=== PATIENT | male | born 1955 | race Caucasian/White ===

== ENCOUNTER 2020-09-22 08:13 | Inpatient (IN) | payer BC ==
[2020-09-22] MEDS ORDERED: PHENYLEPHRINE-NS 100 MCG/ML 10 ML SYRINGE ONE (09:50)
[2020-09-22] MEDS ORDERED: Rocuronium Bromide 10 MG/ML (10ML VIAL) ONE (09:50)
[2020-09-22] MEDS ORDERED: Ondansetron PF 4 MG/2 ML Vial ONE (09:50)
[2020-09-22] MEDS ORDERED: PROPOFOL 200 MG/20 ML VIAL ONE (09:50)
[2020-09-22] MEDS ORDERED: ePHEDrine 50 MG/ML VIAL ONE (09:50)
[2020-09-22] MEDS ORDERED: EPINEPHrine 1 MG/10 ML Abboject SYRINGE ONE (09:50)
[2020-09-22] MEDS ORDERED: Glycopyrrolate 0.2 MG/ML 5 ML SYRINGE ONE (09:50)
[2020-09-22] MEDS ORDERED: Lidocaine 1% PF 5 ML VIAL ONE (09:50)
[2020-09-22] MEDS ORDERED: Dexamethasone 20 MG/5 ML VIAL ONE (09:50)
[2020-09-22] MEDS ORDERED: Heparin 10,000 UNITS/ 10 ML VIAL ONE ×2 (10:33→11:39)
[2020-09-22] MEDS ORDERED: Lidocaine 1% (PF) 30 ML VIAL ONE (10:33)
[2020-09-22] MEDS ORDERED: Fentanyl 100 MCG/2 ML VIAL ONE (10:43)
[2020-09-22] MEDS ORDERED: Iopamidol 370 76% 50 ML VIAL FS ONE (10:52)
[2020-09-22] MEDS ORDERED: Clindamycin/D5W 900 mg/50 ml Premix Bag ONE (11:04)
[2020-09-22] MEDS ORDERED: Phenylephrine 10 MG/ML VIAL ONE (11:40)
[2020-09-22] MEDS ORDERED: Heparin 25,000 units/D5W 500 ML ONE (12:33)
[2020-09-22] MEDS ORDERED: Protamine Sulfate 50 MG/5 ML VIAL ONE (12:47)
[2020-09-22] MEDS ORDERED: Midazolam HCl 2 mg/2 ml Vial ONE (13:23)
[2020-09-22] MEDS ORDERED: Benzonatate 100 MG CAP PO PRN (14:04)
[2020-09-22] MEDS ORDERED: Ondansetron PF 4 MG/2 ML Vial IVP PRN (14:04)
[2020-09-22] MEDS ORDERED: Cepastat Lozenges 1 LOZ PO PRN (14:04)
[2020-09-22] MEDS ORDERED: Temazepam 15 MG CAP PO PRN (14:04)
[2020-09-22] MEDS ORDERED: Acetaminophen 500 MG TAB PO PRN (14:04)
[2020-09-22] MEDS ORDERED: Sodium Chloride 0.9% 1,000 ML IV SCH (14:15)
--- NOTE | 2020-09-22 14:30 | RAD ---
Exam: Chest one view HISTORY:Status post cardiac device placed Comparison: 03/01/2012 FINDINGS: Cardiac silhouette:Normal size. Dual lead left-sided transvenous defibrillator is noted Aorta: Unremarkable Pulmonary vessels: Normal Costophrenic angles: Clear LUNGS: No masses or consolidation. Changes. Pneumothorax: None Osseous abnormalities: None IMPRESSION: 1. Left-sided transvenous defibrillator as above. No pneumothorax.
[2020-09-22 14:31] VITALS: BMI 26.4
[2020-09-22] MEDS: Sodium Chloride 0.9% 1,000 ML IV SCH ×2 (14:34→21:32)
[2020-09-22] MEDS: HYDROcodone/Acetaminophen 5/325 mg Tablet PO PRN (14:51)
[2020-09-22 16:32] LABS: Hemoglobin 8.9 g/dL (14.0-18.0); Platelet Count 93 thou/uL (130-400)
--- NOTE | 2020-09-22 18:10 | PDOC.EP ---
- Subjective Date: 09/22/20 Time: 18:09 Interval History: Chest discomfort. Improved after pericardial drain removal - Objective Allergies/Adverse Reactions: Allergies Allergy/AdvReac Type Severity Reaction Status Date / Time Penicillins Allergy Verified 09/21/20 11:23 Sulfa (Sulfonamide Allergy Verified 09/21/20 11:23 Antibiotics) Current Medications Acetaminophen (Acetaminophen 500 Mg Tab) 1,000 mg PO Q4H PRN PRN Reason: Fever > 101 Hydrocodone Bitart/Acetaminophen (Hydrocodone/Acetaminophen 5/325 Mg Tablet) 1 tab PO Q4H PRN PRN Reason: Moderate Pain (4-6) Last Admin: 09/22/20 14:51 Dose: 1 tab Documented by: Benzonatate (Benzonatate 100 Mg Cap) 100 mg PO Q6H PRN PRN Reason: Cough Sodium Chloride (Normal Saline 0.9%) 1,000 mls @ 125 mls/hr IV .Q8H CORA Last Admin: 09/22/20 14:34 Dose: 1,000 mls Documented by: Ondansetron HCl (Ondansetron Pf 4 Mg/2 Ml Vial) 4 mg IVP Q6H PRN PRN Reason: Nausea/Vomiting Last Admin: 09/22/20 14:50 Dose: 4 mg Documented by: Temazepam (Temazepam 15 Mg Cap) 15 mg PO HSPRN PRN PRN Reason: Insomnia Throat Lozenges (Cepastat Lozenges 1 Mik) 1 mik PO Q2H PRN PRN Reason: Sore Throat Vital Signs & Weight: Vital Signs Temp Pulse Ox 09/22/20 17:00 97.5 F L 09/22/20 14:37 100 09/22/20 14:28 93 L 09/22/20 14:03 97.8 F Weight 194 lb 14.218 oz I/O: I/O 09/21/20 09/22/20 09/23/20 06:59 06:59 06:59 Intake Total 1000 Balance 1000 - Labs Result Diagrams: 09/22/20 16:15 - Assessment/Plan Assessment/Plan: Pericardial effusion - No effusion on follow up echo about 1600. CXR okay. Hgb 8.9 Drain removed. Observe overnight. Case discussed with patient and .
--- NOTE | 2020-09-22 19:55 | PDOC.EP ---
- Subjective Date: 09/22/20 Time: 19:54 Interval History: Mild chest soreness. Feels much better - Objective Allergies/Adverse Reactions: Allergies Allergy/AdvReac Type Severity Reaction Status Date / Time Penicillins Allergy Verified 09/21/20 11:23 Sulfa (Sulfonamide Allergy Verified 09/21/20 11:23 Antibiotics) Current Medications Acetaminophen (Acetaminophen 500 Mg Tab) 1,000 mg PO Q4H PRN PRN Reason: Fever > 101 Hydrocodone Bitart/Acetaminophen (Hydrocodone/Acetaminophen 5/325 Mg Tablet) 1 tab PO Q4H PRN PRN Reason: Moderate Pain (4-6) Last Admin: 09/22/20 14:51 Dose: 1 tab Documented by: Benzonatate (Benzonatate 100 Mg Cap) 100 mg PO Q6H PRN PRN Reason: Cough Sodium Chloride (Normal Saline 0.9%) 1,000 mls @ 125 mls/hr IV .Q8H CORA Last Admin: 09/22/20 14:34 Dose: 1,000 mls Documented by: Ondansetron HCl (Ondansetron Pf 4 Mg/2 Ml Vial) 4 mg IVP Q6H PRN PRN Reason: Nausea/Vomiting Last Admin: 09/22/20 14:50 Dose: 4 mg Documented by: Temazepam (Temazepam 15 Mg Cap) 15 mg PO HSPRN PRN PRN Reason: Insomnia Throat Lozenges (Cepastat Lozenges 1 Mik) 1 mik PO Q2H PRN PRN Reason: Sore Throat Vital Signs & Weight: Vital Signs Temp Pulse Ox 09/22/20 17:00 97.5 F L 09/22/20 14:37 100 09/22/20 14:28 93 L 09/22/20 14:03 97.8 F Weight 194 lb 14.218 oz I/O: I/O 09/21/20 09/22/20 09/23/20 06:59 06:59 06:59 Intake Total 1542 Output Total 650 Balance 892 - Labs Result Diagrams: 09/22/20 16:15 - Assessment/Plan Assessment/Plan: Pericardial effusion. Drain removed. Reevaluate with limited echo in AM
--- NOTE | 2020-09-22 20:35 | OP ---
DATE OF PROCEDURE: 09/22/2020 PRIMARY CARE PHYSICIAN: Parminder Oreilly M.D. REFERRING DIRECTOR MARKET RESEARCH: Mc Paulson D.O. PREOPERATIVE DIAGNOSES: 1. Atypical atrial flutter. 2. Paroxysmal atrial fibrillation. POSTOPERATIVE DIAGNOSES: 1. Atypical atrial flutter. 2. Paroxysmal atrial fibrillation. PROCEDURES PERFORMED: 1. Pulmonary vein isolation. 2. Intracardiac echocardiography. 3. 3D mapping of arrhythmia. 4. Pericardiocentesis. DIGITAL MARKETING STRATEGIST: None. ANESTHESIA: General endotracheal. SPECIMENS: None. ESTIMATED BLOOD LOSS: 20 mL. COMPLICATIONS: Pericardial effusion requiring pericardiocentesis. DESCRIPTION OF PROCEDURE: Risks, benefits, and alternatives of transesophageal echocardiogram and radiofrequency ablation including, but not limited to myocardial infarction, stroke, , pericardial effusion requiring pericardiocentesis or surgery, damage to oropharyngeal or esophageal structures, esophageal fistula, pulmonary vein stenosis, allergic reaction, damage to cardiac or vascular structures were discussed prior to the procedure. The patient was brought electively to the electrophysiology suite. The patient was intubated by Anesthesia. Transesophageal echocardiogram was performed by nj that showed mild left atrial enlargement, ejection fraction 60%. Trace mitral regurgitation with normal valvular structures. Bilateral femoral areas were prepped and draped in a sterile fashion. Subxiphoid area was also prepped and draped in a sterile fashion. Using ultrasound guidance, two long 7-Albanian sheaths were placed in the left femoral vein and a two Lamp 45 sheaths were placed in the right femoral vein. A long Albanian 7-Albanian sheath was exchanged over the guidewire for a long 9-Albanian sheath. Decapolar catheter was placed in the coronary sinus. Left atrial pacing recording was performed. Duo-Decapolar catheter was placed in the lateral right atrium. When pacing the proximal coronary sinus, there was a medial to lateral block across a prior cavotricuspid isthmus lesion with conduction 187 milliseconds. Using fluoroscopic and intracardiac echo guidance, two transseptal punctures were performed. Using HD grid mapping catheter, 3D mapping was performed. A Lamp sheath was exchanged over guidewire for an Agilis sheath. TactiCath D/F irrigating catheter was used for ablation. Radiofrequency ablation was performed on the posterior wall around the left pulmonary veins and the anterior wall around the left pulmonary veins. The left pulmonary vein was isolated. At this point, the patient developed hypotension. Intracardiac echo showed a small pericardial effusion. Heparin was discontinued. Sheaths were pulled back to the right atrium. Protamine was given. Pericardiocentesis was performed under fluoroscopic and echo guidance, which revealed 280 mL of bloody fluid that was removed from the pericardium. The pericardial drain was sewed into place. Sheaths were pulled. Vascade closure devices were placed. The patient tolerated the procedure well. He had blood pressure in the 120 systolic on transfer to the CCU. I discussed the case with the in the waiting area. CONCLUSION: 1. Atypical atrial flutter. 2. Paroxysmal atrial fibrillation. 3. Pulmonary vein isolation. 4. Cardiac tamponade requiring pericardiocentesis. PLAN: 1. Hold Eliquis. 2. Transfer to CCU. 3. Leave pericardial drain in place, consider removing tomorrow. 4. Type and cross, 2 units pack red blood cells. Job ID: [id number] MTDD
[2020-09-23] MEDS: HYDROcodone/Acetaminophen 5/325 mg Tablet PO PRN (00:32)
[2020-09-23] MEDS: Sodium Chloride 0.9% 1,000 ML IV SCH (05:30)
--- NOTE | 2020-09-23 05:42 | HP ---
PRIMARY CARE PHYSICIAN: Eliezer Daly MD REFERRING HEAD LOFT WORKER: Mc Paulson MD REASON FOR ADMISSION: Cardiac tamponade. HISTORY OF PRESENT ILLNESS: The patient is a pleasant 65-year-old white male with a history of paroxysmal atrial fibrillation, typical atrial flutter, and coronary artery disease and Knapp dual-chamber ICD, who underwent elective cardiac ablation today. During the procedure, he developed cardiac tamponade with pericardial effusion. I drained 280 mL of blood from his pericardium. He stabilized. The drain was sewn into place and he was transferred to the CCU. Currently, he has no complaints. Blood pressure is 92/64. He is off pressors. PAST MEDICAL HISTORY: 1. Slow pathway ablation, September 01, [address] García. 2. Cavotricuspid isthmus ablation in August [address] García. 3. Two ablations for left atrial tachycardia last in 2008. 4. Coronary artery disease. 5. Typical atrial flutter. 6. Atrial tachycardia. 7. AV romy reentry tachycardia. 8. 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 He was on sotalol at that time. 9. Thyroid nodule. 10. Hypertension. 11. Impingement syndrome, left shoulder. PAST SURGICAL HISTORY: 1. On February 28, 2018, Knapp dual-chamber ICD. On May 11, 2015, PCI to RCA and FFR of mid LAD due to [id number] myocardial infarction. In February 2007, cardiac cath with patent stent, occluded diagonal filled by collaterals. In 1995, myocardial infarction with PCI to mid LAD. 2. Left Achilles tendon repair. 3. Excision of thyroglossal cyst. 4. Tonsillectomy. 5. Adenoidectomy. ALLERGIES: 1. PENICILLIN. 2. SULFA. FAMILY HISTORY: Positive for CAD and stroke. SOCIAL HISTORY: He is . His , Emmie is with him today. He teaches high school here in town. He is a former smoker. Occasional alcohol. OUTPATIENT MEDICATIONS: 1. Eliquis 5 mg b.i.d. 2. Enalapril 2.5 mg b.i.d. 3. Toprol-XL 25 mg b.i.d. REVIEW OF SYSTEMS: 12-point review of systems negative. PHYSICAL EXAMINATION: GENERAL: Alert and oriented x4. No apparent distress. VITAL SIGNS: Afebrile. Blood pressure 94/64, heart rate 80 (paced), respiratory rate 12. HEENT: No lesions. Sclerae clear. SKIN: No lesions. CARDIOVASCULAR: Regular rate and rhythm. No murmurs, gallops, or rubs. LUNGS: Clear to auscultation bilaterally. ABDOMEN: Nontender, nondistended. Cath sites without complications. EXTREMITIES: No cyanosis, clubbing, or edema. IMPRESSION: 1. Cardiac tamponade, requiring pericardiocentesis. The drain is left in place. 280 mL of blood removed. 2. Paroxysmal atrial fibrillation with partially completed ablation today. 3. Typical atrial flutter with intact cavotricuspid isthmus ablation line checked today. 4. Coronary artery disease. PLAN: 1. Admit to CCU. 2. Intravenous fluid with normal saline bolus followed by transfusion. 3. Check H and H at 1600 hours. 4. Periodically drain pericardial drain. 5. Repeat echocardiogram if blood pressure does not improve. 6. Hold anticoagulation. 7. I have discussed the case at length with the patient and his . Multiple questions answered. Job ID: [id number] [facility]
[2020-09-23 08:58] LABS: #Eosinphils 0.1 thou/uL (0.0-0.7); #Lymphocytes 0.9 thou/uL (1.20-3.40); #Monocytes 0.8 thou/uL (0.11-0.59); #Neutrophils 7.8 thou/uL (1.40-6.50); %Basophils 0.1 % (0.0-1.0); %Eosinophils 0.6 % (0.0-10.0); %Monocytes 8.4 % (0.0-10.0); Hemoglobin 12.9 g/dL (14.0-18.0); Mean Corpuscular HGB CONC 32.4 g/dL (32.0-36.0); Mean Corpuscular Hemoglobin 32.5 pg (27.0-31.0); Mean Platelet Volume 9.6 fL (7.4-10.4); Platelet Count 148 thou/uL (130-400); RBC Distribution Width 12.3 % (11.5-14.5); Red Blood Cell (RBC) Count 3.95 mill/uL (4.70-6.10); White Blood Cell (WBC) Count 9.5 thou/uL (4.8-10.8)
[2020-09-23 09:11] LABS: Anion Gap 12 mmol/L (10-20); BUN (Urea Nitrogen) 9 mg/dL (8.4-25.7); Calc. Creatinine Clearance 112 mL/min (70-130); Calcium 7.8 mg/dL (7.8-10.44); Carbon Dioxide 22 mmol/L (23-31); Chloride 109 mmol/L (98-107); Glucose 91 mg/dL (80-115); Potassium 4.3 mmol/L (3.5-5.1); Sodium 139 mmol/L (136-145)
[2020-09-23 10:02] VITALS: TEMP 97.6
--- NOTE | 2020-09-23 21:02 | DIS ---
DATE OF ADMISSION: 09/22/2020 DATE OF DISCHARGE: 09/23/2020 PRIMARY CARE PHYSICIAN: Dr. Stewart Oreilly. HOSPITAL COURSE: Mr. Geller is a pleasant 65-year-old patient of ours, who underwent elective EP study yesterday September 22 for atypical flutter. Unfortunately periprocedural, he developed hypotension and tamponade with echocardiogram showing pericardial effusion. Emergent pericardiocentesis was performed with pericardial drain in place. The patient did remarkably well postprocedure and regained normal vital signs. Stat hemoglobin showed drop to 8.9. Repeat echocardiogram after drain showed mild residual effusion that was markedly improved with no worsening. He was transferred to the CCU to be monitored and has done well overnight. Repeat echocardiogram this morning shows no residual effusion. Drain was pulled yesterday afternoon. Hemoglobin this morning is much better at 12.9. Vital signs remained stable. Other than some mild chest discomfort with deep inspiration, the patient reports no symptoms. He has maintained sinus rhythm postprocedure. At this point, we will discharge him and hold his Eliquis for one week. I will see him back this week to re-evaluate. Reasons to return to the ER have been given, but this point I think he is stable. We will continue his other medicines other than the Eliquis. MEDICATIONS AT DISCHARGE: 1. Eliquis 5 mg twice a day - holding for the next week. 2. Toprol 50 mg twice a day. 3. Enalapril 2.5 mg twice a day. 4. Protonix 40 mg daily. PHYSICAL EXAMINATION: VITAL SIGNS: Blood pressure 106/68, pulse 80, oxygen saturation 99% on room air, and respiratory rate 16. GENERAL: Alert, pleasant male, in no acute distress at the present time. HEENT: Sclerae nonicteric. LUNGS: Clear throughout. CARDIOVASCULAR: S1 and S2. No audible murmur. ABDOMEN: Nontender. : Bilateral groin sites well healed. No drainage. No tender. NEUROPSYCH: No gross deficits. IMAGING DATA: Telemetry shows normal sinus rhythm with rates in the 60s. ASSESSMENT AND PLAN: Discharge as per above. Continue medications with the exception of Eliquis. I will see him back this week. We may consider repeat EP study in the future depending on how his rhythm does. Job ID: [id number]
== END 2020-09-23 13:24 | disposition home or self-care (01) | DRG 274 ==
LOC: CCL 08:13 → CCU 12:52
PROVIDERS: ADMIT Internal Medicine Cardiovascular Disease; ATTEND Internal Medicine Cardiovascular Disease
PROC: 0W9D3ZZ Drainage of Pericardial Cavity, Percutaneous Approach (ICD-10-PCS; principal; 2020-09-22)
PROC: 02583ZZ Destruction of Conduction Mechanism, Percutaneous Approach (ICD-10-PCS; 2020-09-22)
PROC: 4A023FZ Measurement of Cardiac Rhythm, Percutaneous Approach (ICD-10-PCS; 2020-09-22)
PROC: 4A0234Z Measurement of Cardiac Electrical Activity, Percutaneous Approach (ICD-10-PCS; 2020-09-22)
PROC: 02K83ZZ Map Conduction Mechanism, Percutaneous Approach (ICD-10-PCS; 2020-09-22)
DX: I31.4 Cardiac tamponade (principal); I48.4 Atypical atrial flutter; I48.3 Typical atrial flutter; I48.0 Paroxysmal atrial fibrillation; I31.3 Pericardial effusion (noninflammatory); M75.42 Impingement syndrome of left shoulder; I10 Essential (primary) hypertension; I25.10 Atherosclerotic heart disease of native coronary artery without angina pectoris; Z95.810 Presence of automatic (implantable) cardiac defibrillator; Z98.890 Other specified postprocedural states; Z90.89 Acquired absence of other organs; Z95.5 Presence of coronary angioplasty implant and graft; Z88.0 Allergy status to penicillin; Z88.2 Allergy status to sulfonamides; Z82.3 Family history of stroke; Z82.49 Family history of ischemic heart disease and other diseases of the circulatory system; Z87.891 Personal history of nicotine dependence; I25.2 Old myocardial infarction
CPT/HCPCS: 36415; 71045; 76942; 80048; 85014; 85018; 85025; 85049; 85347; 86850; 86900; 86901; 93005; 93010; 93306; 93312; 93613; 93622; 93656; 93662; C1729; C1730; C1732; C1753; C1894; C2630; J0171; J1100; J1644; J2001; J2250; J2370; J2405; J2704; J2720; J3010; J3490; Q9967